=== PATIENT | male | born 1965 | race Hispanic/Latino ===

== ENCOUNTER 2017-01-02 11:11 | Emergency (ER) | payer BC, OTHER ==
[2017-01-02 11:11] VITALS: BMI 21.9
[2017-01-02 11:19] VITALS: BP 121/71; PULSE 72; TEMP 97.7; O2SAT 97
--- NOTE | 2017-01-02 11:48 | C.PDOC ---
History Of Present Illness 51 year old patient presents to the ED complaining of intermittent numbness and discoloration to the distal tip of the right hand third digit for the past few weeks. Patient states the symptoms are worse today. Patient has a prior history of multiple finger fractures in the right hand from a few years ago. It was never treated by orthopedics. Patient denies recent injuries, fever, chills, or drainage. Time Seen by Provider: 01/02/17 11:39 Chief Complaint (Nursing): Upper Extremity Problem/Injury History Per: Patient History/Exam Limitations: no limitations Onset/Duration Of Symptoms: Worse Since (today), Other (few weeks) Current Symptoms Are (Timing): Still Present Quality: Other (numbness) Exacerbating Factor(s): Nothing Recent travel outside of the [place]: No Past Medical History Reviewed: Historical Data, Nursing Documentation, Vital Signs Vital Signs: Last Vital Signs Temp 97.7 F 01/02/17 12:00 Pulse 72 01/02/17 12:00 Resp 18 01/02/17 12:00 BP 121/71 01/02/17 12:00 Pulse Ox 97 01/02/17 12:16 - [facility] Procedures INJECT/INFUSE NEC (03/23/15) Family History: States: No Known Family Hx - Social History Hx Alcohol Use: Yes Hx Substance Use: No - Immunization History Hx Tetanus Toxoid Vaccination: No Hx Influenza Vaccination: No Hx Pneumococcal Vaccination: No Review Of Systems Except As Marked, All Systems Reviewed And Found Negative. Constitutional: Negative for: Fever, Chills Musculoskeletal: Negative for: Other (recent injuries) Skin: Negative for: Other (drainage) Physical Exam - Physical Exam Appears: Non-toxic, No Acute Distress, Other (comfortable) Skin: Warm, Dry, No Rash Extremity: Other (right hand: 3rd, 4th and 5th digits have mild deformities, (-) no paronychia, (-)erythema, (-)swelling, (+)capillary refill less than 2 seconds (+)good radial pulses (-)rash) ED Course And Treatment O2 Sat by Pulse Oximetry: 97 (RA) Pulse Ox Interpretation: Normal Progress Note: Patient is discharged. Patient is instructed to follow up with a hand surgeon in 1-2 days or return if symptoms worsen. Disposition Counseled Patient/Family Regarding: Diagnosis, Need For Followup, Rx Given - Disposition Referrals: [facility] [Outside] Andrew Nobles MD [Provisional Staff] - Disposition: HOME/ ROUTINE Disposition Time: 11:50 Condition: STABLE Additional Instructions: FOLLOW UP WITH HAND SURGEON WITHIN 1 WEEK USE PAIN MEDICATION NEEDED RETURN TO ER IF SYMPTOMS WORSEN Prescriptions: Naproxen [Naprosyn Tab] 375 mg PO BID PRN #15 tab PRN Reason: pain Instructions: Paresthesia (ED) Print Language: GU[place]EMAL[place] - POA Present On Arrival: None - Clinical Impression Clinical Impression: Finger injury, Paresthesia - Scribe Statement The provider has reviewed the documentation as recorded by the Scribe Willow Vega Provider Attestation: All medical record entries made by the Scribe were at my direction and personally dictated by me. I have reviewed the chart and agree that the record accurately reflects my personal performance of the history, physical exam, medical decision making, and the department course for this patient. I have also personally directed, reviewed, and agree with the discharge instructions and disposition.
[2017-01-02 12:03] VITALS: RESP 18
== END 2017-01-02 12:00 | disposition home or self-care (01) ==
LOC: C.ER 11:11
DX: R20.9 Unspecified disturbances of skin sensation (principal); S69.91XA Unspecified injury of right wrist, hand and finger(s), initial encounter; X58.XXXA Exposure to other specified factors, initial encounter